=== PATIENT | female | born 1985 | race Caucasian/White ===

== ENCOUNTER 2017-07-22 20:41 | Emergency (ER) | payer OTHER ==
[~2017-07-22] VITALS: Ht 160 cm; Wt 113.4 kg
[~2017-07-22 20:41] MED LIST: BEYAZ 28 TABLE1 EACH PO; GLUCOSAMINE CH1 EACH PO; NABUMETONE500 MG PO; PEPCID40 MG PO; PERCOCET 5/3251 TAB PO; PHENERGAN25 MG PO; SYNTHROID50 MCG PO; VITAMIN D400 UNIT PO
== END 2017-07-23 00:40 | disposition home or self-care (01) ==
LOC: ER 20:41
DX: S93.492A Sprain of other ligament of left ankle, initial encounter (principal); X50.3XXA Overexertion from repetitive movements, initial encounter; Y93.89 Activity, other specified; Y92.098 Other place in other non-institutional residence as the place of occurrence of the external cause; Y99.8 Other external cause status

== ENCOUNTER 2017-07-25 14:17 | Outpatient (CLI) | payer OTHER | END 2017-07-25 14:23 | disposition home or self-care (01) | LOC: SONOGRAMA 14:17 | DX: S93.432A Sprain of tibiofibular ligament of left ankle, initial encounter (principal); M25.572 Pain in left ankle and joints of left foot ==

== ENCOUNTER 2018-02-15 10:11 | Outpatient (CLI) | payer OTHER | END 2018-02-15 17:00 | disposition home or self-care (01) | LOC: MRI 10:11 | DX: M25.562 Pain in left knee (principal); M25.561 Pain in right knee | CPT/HCPCS: 73721 ==

== ENCOUNTER 2023-05-17 06:30 | Day surgery (SDC) | payer OTHER ==
[2023-05-10 12:31] LABS: HEMATOCRIT 40.1 % (36.0-45.00); HEMOGLOBIN 13.8 g/dL (12.0-15.00); MEAN CELL VOLUME 85.2 fL (80.00-100.00); MEAN CORPUSCULAR HEMOGLOBIN 29.4 pg (27.00-32.0); MEAN CORPUSCULAR HGB CONC 34.5 g/dl (32.0-36.0); PLATELET COUNT 292 K/uL (150-450); RED CELL DISTRIBUTION WIDTH 13.3 % (11.5-14.5)
[2023-05-10 12:41] LABS: URINE APPEARANCE Cloudy; URINE BILIRRUBIN Negative (NEGATIVE); URINE BLOOD Large; URINE COLOR Yellow; URINE GLUCOSE Negative (NEGATIVE); URINE LEUKOCYTE Moderate; URINE NITRATE Negative; URINE PROTEIN Negative (NEGATIVE); URINE UROBILINOGEN 0.2 E.U./dl
[2023-05-10 12:44] LABS: URINE BACTERIA 2201.1 uL (0.0-1933); URINE EPITHELIAL CELLS 170.9 uL (0.0-38.8); URINE RBC 3.1 uL (0.0-20.8); URINE WBC 120.4 uL (0.0-23.2)
[2023-05-10 12:51] LABS: INR 0.94; PARTIAL THROMBOPLASTIN TIME 26.8 SECONDS (22.0-34.0)
[2023-05-10 12:52] LABS: PROTHROMBIN TIME 9.9 SECONDS (9.0-11.5)
[2023-05-10 13:41] LABS: ALBUMIN 3.3 gm/dL (3.4-5.0); BILIRUBIN TOTAL 0.34 mg/dL (0.3-1.2); CALCIUM 8.9 mg/dL (8.5-10.1); CREATININE SERUM 0.71 mg/dL (0.55-1.02); GFR 93.68; GLOBULINA 3.9 G/DL (2.4-3.5); POTASSIUM 4.34 mEq/L (3.5-5.1); TOTAL PROTEIN 7.2 gm/dL (6.4-8.2)
[~2023-05-17 06:30] MED LIST changes: +TROKENDI XR50 MG PO
[2023-05-17] MEDS ORDERED: CLINDAMYCIN PHOSPHATE 150 MG/ML (900mg) ONE (08:00)
[2023-05-17] MEDS ORDERED: METHYLPREDNISOLONE ACETATE 80 MG/ML VIAL ONE (08:33)
[2023-05-17] MEDS ORDERED: CHLORHEXIDINE GLUCONATE 120 ML BOTTLE TOP ONE ×2 (09:06→09:45)
[2023-05-17] MEDS ORDERED: METHYLPREDNISOLONE ACETATE 80 MG/ML VIAL IJ ONE (09:45)
[2023-05-17] MEDS ORDERED: ISOPROPYL ALCOHOL 30 ML OUNCE TOP ONE (09:45)
[2023-05-17] MEDS ORDERED: CLINDAMYCIN PHOSPHATE 150 MG/ML (900mg) IV ONE (09:45)
[2023-05-17] MEDS ORDERED: ONDANSETRON HCL 2 MG/ML VIAL ONE (10:50)
== END 2023-05-17 13:30 | disposition home or self-care (01) ==
LOC: CIR.AMB 06:30
PROVIDERS: ATTEND Orthopaedic Surgery Hand Surgery
DX: M24.831 Other specific joint derangements of right wrist, not elsewhere classified (principal); Z88.8 Allergy status to other drugs, medicaments and biological substances